=== PATIENT | female | born 1970 | race Caucasian/White ===

== ENCOUNTER 2021-01-14 07:01 | Day surgery (SDC) | payer MEDICARE, MEDICAID ==
[~2021-01-14] VITALS: Ht 167.6 cm; Wt 52.2 kg
[~2021-01-14 07:01] MED LIST: ALBUAER3 IN; ATOR20TA PO; BIMA0.01 EACHEYE; CHOL10009 PO; CLOP75TA28 PO; DILT120T3 PO; DOCU100T15 PO; FERR1TAB17 PO; GABA300C10 PO; METO25TA93 PO; OMEP-263 PO; QUET25TA37 PO
[2021-01-14] MEDS ORDERED: LIDOCAINE 2%HCL (LOCAL ANESTH.) INJ 20ML MDV ONE (07:35)
[2021-01-14] MEDS ORDERED: IODIXANOL 320MG/ML 100ML BTL IV ONE ×2 (07:35→08:29)
[2021-01-14] MEDS ORDERED: fentaNYL CITRATE 100 MCG/2 ML VL ONE (08:25)
[2021-01-14] MEDS ORDERED: SODIUM CHL 0.9% 0 ML ONE (08:25)
[2021-01-14] MEDS ORDERED: ANGIOMAX 250 MG VIAL IV ONE (08:25)
[2021-01-14] MEDS ORDERED: MIDAZOLAM HCL 1MG/1ML-2 ML VIAL ONE (08:25)
[2021-01-14] MEDS ORDERED: ACETAMINOPHEN 500 MG TAB PO PRN (11:00)
[2021-01-14] MEDS ORDERED: ONDANSETRON HCL 4 MG/2 ML VIAL IV PRN (11:00)
== END 2021-01-14 12:00 | disposition home or self-care (01) ==
LOC: CATH 07:01
PROVIDERS: ATTEND Internal Medicine Cardiovascular Disease
DX: I25.10 Atherosclerotic heart disease of native coronary artery without angina pectoris (principal); J44.9 Chronic obstructive pulmonary disease, unspecified; N18.6 End stage renal disease; Z79.899 Other long term (current) drug therapy; Z20.822 Contact with and (suspected) exposure to COVID-19; Z98.890 Other specified postprocedural states; Z86.73 Personal history of transient ischemic attack (TIA), and cerebral infarction without residual deficits; Z87.891 Personal history of nicotine dependence; Z99.2 Dependence on renal dialysis
CPT/HCPCS: 93460; 93571; C1751; C1760; C1894; J1644; J2250; J3010; Q9967; U0003; 99152; 99153